=== PATIENT | male | born 1985 | race Caucasian/White ===

== ENCOUNTER 2017-07-16 12:24 | Emergency (ER) | payer SELFPAY ==
--- NOTE | 2017-07-16 12:24 | DT_ITS ---
This patient was seen during an EMR downtime July 16, 2017 - July 23, 2017. This patient may have a combination of paper and electronic documentation or all paper documentation. All documentation is viewable within the e-chart portion of [employer] for each patient visit.
== END 2017-07-16 13:41 | disposition home or self-care (01) ==
LOC: ED 07-18 15:52
PROVIDERS: Emergency Provider Emergency Medicine
DX: J02.9 Acute pharyngitis, unspecified (principal); R11.10 Vomiting, unspecified
CPT/HCPCS: 87880

== ENCOUNTER → 2020-04-28 16:29 | Outpatient (CLI) | payer OTHER, SELFPAY ==
[2016-01-24 12:38] VITALS: BMI 29.7
[2020-04-28 17:54] LABS: Absolute Lymphocyte Count 1.68 X10^3/uL (0.83-4.51); Absolute Neutrophil Count 3.5 X10^3/uL (2.0-7.7); Basophil# 0.05 X10^3/uL; Basophil% 0.8 % (0-1); Eosinophil# 0.19 X10^3/uL; Eosinophils% 3.2 % (0-5); Hematocrit 44.7 % (40-54); Hemoglobin 14.6 g/dL (13.0-16.5); Lymphocyte # 1.68 X10^3/ul (4.0); Lymphocyte % 28.4 % (19-41); Mean Corp Hgb Conc 32.7 g/dL (32-36); Mean Corpuscular Volume 85.8 fL (80-94); Mean Platelet Vol. 10.6 fl (6.2-12.0); Monocyte# 0.44 X10^3/uL; Monocyte% 7.4 % (0-10); NRBC Flagged by Analyzer 0 % (0-5); Neutrophil # 3.54 X10^3/uL (2.7-7.7); Platelet Count 256 K/mm3 (150-450); RBC Distribution Width CV 13.2 % (11.6-14.6); RBC Distribution Width SD 41.7 fl (35.1-43.9); Red Blood Count 5.21 M/mm3 (4.6-6.2); White Blood Count 5.9 K/mm3 (4.4-11.0)
== END ==
PROVIDERS: Referring Provider Otolaryngology; Visit Provider Otolaryngology
DX: R06.09 Other forms of dyspnea (principal)
CPT/HCPCS: 36415; 85025

== ENCOUNTER → 2020-06-14 13:46 | Outpatient (CLI) | payer OTHER, SELFPAY ==
[2020-05-26 15:08] VITALS: BMI 30.1
--- NOTE | 2020-06-14 13:47 | STEWCON_ITS ---
Reason For Study: CAPPS Stress Results Protocol: Matias Protocol WITH DEFINITY Maximum Predicted HR: 187 bpm Target HR: 159 bpm % Maximum Predicted HR: 91 % DurationHeart Rate Stage (mm:ss) (bpm) BP Comment Baseline 82 122/78No Chest Pain; 4 ML Diluted Definity Matias Protocol Stage I 3:00 110 134/70No Chest Pain Matias Protocol Stage II 3:00 130 132/78No Chest Pain; Mild Dyspnea Matias Protocol Stage III 3:00 150 140/74No Chest Pain; Mild Dyspnea; SPO2 95% Matias Protocol Stage IV 1:30 171 / No Chest Pain; Mild Dyspnea Recovery 100 120/82No Chest Pain; No Dyspnea Stress Duration: 10:30 mm:ss Maximum Stress HR: 171 bpm METS: 13 Baseline Echocardiogram Findings Stress Echo Wall motion Data Resting WM Intermediate WM Stress WM ECHO/Stress Test Echo W/Contrast Interpretation Summary Exercise stress echo. 34-year-old man with a history of chest pain. Stress protocol: Resting EKG demonstrates normal sinus rhythm with a rate of 78 bpm resting bloo d pressure is 122/78 mmHg. The patient exercised according to the regular Matias protocol for a total duration of 10 minutes and 30 seconds. Patient completed 1 minute and 30 seconds into stage IV of the Matias protocol. The maximum heart rate attained was 171 bpm which was 91% of maximum predicted heart rate the maximum workload was 13.4 metabolic equivalents. The patient maintained sin us rhythm throughout the recording. At rest there were no ST or T wave changes noted to suggest isch emia and at peak exercise upsloping ST changes only were noted with did not meet the criteria fo r ischemia. No clinical angina was noted the test was terminated due to leg fatigue. Good bloo d pressure response was noted to exercise with a peak blood pressure 150/70 mmHg. Stress echocardiogram. The resting echocardiogram demonstrated an ejection fraction of approximately 4 7% with mild global hypokinesis. At peak exercise there was thickening of all hurley and reduction o f left ventricular cavity size with a peaking ejection fraction of 65%. No wall motion abnormaliti es were noted. Conclusion: Exercise stress echo with no evidence of ischemia at a high workload. Excellent functional capacity. No clinical angina noted. Ordering Physician: Ken Adhikari Referring Physician: Ken Adhikari Performed By: Lisette Carmichael, HUGH, RVT
== END ==
PROVIDERS: Referring Provider Internal Medicine Cardiovascular Disease; Visit Provider Internal Medicine Cardiovascular Disease
DX: I49.3 Ventricular premature depolarization (principal); R06.02 Shortness of breath
CPT/HCPCS: 93017; 93350; Q9957; A4216; C8928

== ENCOUNTER → 2020-06-16 16:18 | Outpatient (CLI) | payer OTHER, SELFPAY ==
[2020-05-26 15:08] VITALS: BMI 30.1
[2020-06-16 17:44] LABS: BNP,B-Type NATRIURETIC PEPTIDE < 2.0 pg/mL (0-100)
== END ==
PROVIDERS: Visit Provider Internal Medicine Cardiovascular Disease
DX: I49.3 Ventricular premature depolarization (principal); I43 Cardiomyopathy in diseases classified elsewhere; R06.02 Shortness of breath
CPT/HCPCS: 36415; 83880

== ENCOUNTER 2023-08-01 11:00 | Emergency (ER) | payer OTHER, SELFPAY ==
[2023-08-01 11:01] VITALS: BP 134/76; PULSE 78; RESP 16; TEMP 36.4; O2SAT 98; BMI 28.0
--- NOTE | 2023-08-01 11:38 | EDS_ITS ---
HPI HPI - GI History of Present Illness Chief Complaint: Abd Pain Informant: patient Narrative Narrative: 37-year-old male presenting to the emergency room with right upper quadrant abdominal pain. Symptoms have been intermittent over the past couple weeks. He states he has been feeling full longer after he eats but not necessarily early satiety. States he feels like maybe he is not digesting his food normally. Pain does not radiate. Pain seems to get intense at times and then improves. He denies any vomiting. No diarrhea. No hematuria or urinary frequency/dysuria. No shoulder or new back pain. He has had prior tonsillectomy a few years ago. Currently not taking any medications. No prior abdominal surgeries. PFSH PFS Medical History Cardiomyopathy in diseases classified elsewhere Hypersomnia GERD (gastroesophageal reflux disease) Hypertrophy tonsils Other diseases of larynx Obesity Home Medications ?Medication ?Instructions ?Recorded ?Last Taken ?Type ondansetron 4 mg disintegrating 4 mg PO Q6H PRN PRN Nausea #15 tabs 08/01/23 Unknown Rx tablet oxycodone-acetaminophen 5 mg-325 1 tab PO Q6H PRN PRN Pain 3 days 08/01/23 Unknown Rx mg tablet #12 TABLETS sulfamethoxazole 800 1 tab PO BID #14 TABLETS 08/01/23 Unknown Rx mg-trimethoprim 160 mg tablet Allergy/AdvReac Type Severity Reaction Status Date / Time No Known Allergies Allergy Verified 08/01/23 11:01 Social History Smoking Status: Never smoker [facility] ED Constitutional Constitutional ED: Denies chills, fever(s) or weight loss Eyes Eyes: Denies change in vision or diplopia ENT ENT ED: Denies ear pain, rhinorrhea or sore throat Cardiovascular Cardiovascular: Denies chest pain, orthopnea, palpitations or racing heartbeat Respiratory/Chest Respiratory/Chest: Denies cough, dyspnea or orthopnea Gastrointestinal Gastrointestinal: Reports abdominal pain; Denies diarrhea, nausea or vomiting Genitourinary Genitourinary ED: Denies dysuria, hematuria or urinary frequency Musculoskeletal Musculoskeletal: Reports back pain; Denies arthralgias, myalgias or neck pain Integumentary Denies abscess or rash Neurologic Neurologic: Denies headache(s) or weakness Psychiatric Psychiatric: Denies anxiety, depression, suicidal ideation or suicidal thoughts Endocrine Endocrinology: Denies polydipsia, polyphagia or polyuria Allergic/Immunologic Allergic/Immunologic ED: Denies mouth swelling, tongue swelling or urticaria EXAM Physical Exam Const Vital Signs: 08/01/23 11:01 08/01/23 13:00 Temperature 97.6 F L 97.9 F Temperature Source Temporal Oral Pulse Rate 78 71 Respiratory Rate 16 18 Blood Pressure 134/76 H 115/60 Blood Pressure Mean 95 78 Pulse Ox 98 99 Oxygen Delivery Method Room Air Room Air Positive well nourished and well developed General Appearance ED: well developed HEENT Reports normocephalic, head/scalp atraumatic and moist mucous membranes Eyes PERRL and EOMs intact bilaterally Neck no lymphadenopathy, supple and no JVD Resp normal respiratory effort and clear to auscultation bilaterally Cardio regular rate, regular rhythm and no murmurs GI non-distended and no masses Inspection: Negative for abdominal distention Auscultation: normoactive bowel sounds Palpation: soft and tender RUQ; Negative for guarding or rebound tenderness present Back/Spine no CVA tenderness and normal ROM Extremity normal to inspection General Extremety ED: Negative for edema General Extremity: Negative for edema Neuro oriented x3 and CN's II-XII intact bilaterally Sensorium / Orientation: alert Motor Exam: strength 5/5 throughout Psych mental status grossly normal Mood & Affect: Negative for depressed or tearful Skin no rashes or lesions noted and no wounds MDM MDM MDM Narrative Medical decision making narrative: Differential diagnosis includes but not limited to cholelithiasis choledocholithiasis acute hepatitis pancreatitis colitis ureterolithiasis pyelonephritis muscle strain pneumonia. Basic blood work was very unremarkable except for glucose of 114. Lipase liver enzymes within normal limits. White count is normal at 6.3 with a normal differential. Urinalysis is very brown. Noted to have greater than 100 red blood cells 2+ bacteria positive nitrates positive leukocyte esterase. This was sent for culture. Initially a gallbladder ultrasound was ordered but upon receipt of the urine I changed this to a CT of the abdomen pelvis. This demonstrates a proximal ureteral stone on the right. I think this is the source of the patient's pain. I do not appreciate cholelithiasis. There is some possible sigmoid bowel thickening but he is not having those types of symptoms or pain in the left lower quadrant suprapubic region. Patient will be placed on antibiotics as well as pain and nausea medication. I gave him urology to follow-up with. He understands return instructions. History & Record Review Discussion w/independent historian: Patient Lab Data Attestation: I reviewed the patient's lab results. Labs: Laboratory Results - last 24 hr 08/01/23 11:20 WBC 6.3 RBC 5.55 Hgb 15.9 Hct 48.5 MCV 87.4 MCH 28.6 MCHC 32.8 RDW Std Deviation 42.5 RDW Coeff of Suad 13.2 Plt Count 285 MPV 10.3 Immature Gran % (Auto) 0.200 Neut % (Auto) 67.2 Lymph % (Auto) 25.2 [place] % (Auto) 5.2 Eos % (Auto) 1.4 Baso % (Auto) 0.8 Absolute Neuts (auto) 4.2 Absolute Lymphs (auto) 1.59 Nucleated RBC % 0 Sodium 138 Potassium 3.9 Chloride 105 Carbon Dioxide 27.0 Anion Gap 6 BUN 14 Creatinine 1.07 Estim Creat Clear Calc 103.88 Est GFR (MDRD) Af Amer 100 Est GFR (MDRD) Non-Af 83 BUN/Creatinine Ratio 13.1 Glucose 114 H Calcium 9.4 Total Bilirubin 1.00 Direct Bilirubin 0.22 AST 30 ALT 53 Alkaline Phosphatase 88 Total Protein 7.8 Albumin 4.4 Globulin 3.4 Lipase 41 Urine Color Brown Urine Clarity Turbid Urine pH 5.0 Ur Specific [place] 1.025 Urine Protein 100 H Urine Glucose (UA) Normal Urine Ketones 5 H Urine Occult Blood 250 H Urine Nitrite Positive H Urine Bilirubin 1 H Urine Urobilinogen 1 H Ur Leukocyte Esterase 25 H Urine RBC > 100 SEEN Urine WBC 0-5 SEEN Ur Squamous Epith Cells 0 SEEN Ur Transition Epith Cell 0-5 SEEN Urine Bacteria 2+ Urine Mucus 0 SEEN Urine Yeast 3+ Radiography Diagnostic Testing: Clinical Impression(s) from Imaging Studies Abdomen/Pelvis CT 08/01/23 12:18 IMPRESSION: Mild degree of thickening of the sigmoid colon. Mild degree of colitis should be ruled out. Electronically Signed: En Hurtado MD at 12:38 EDT , ADDENDUM: 08/01/23 7316 IMPRESSION: undefined Discharge Plan Triage Chief Complaint: Abd Pain ED Provider: Gary Hamilton Dx/Rx/DC Orders Clinical Impression: Abdominal pain, Ureterolithiasis, UTI (urinary tract infection) Instructions: ED Kidney Stone with Pain Prescriptions: New oxycodone-acetaminophen 5-325 mg tablet 1 tab PO Q6H PRN PRN (Reason: Pain) 3 Days Qty: 12 0RF ondansetron 4 mg tablet,disintegrating 4 mg PO Q6H PRN PRN (Reason: Nausea) Qty: 15 0RF sulfamethoxazole-trimethoprim 800-160 mg tablet 1 tab PO BID Qty: 14 0RF Primary Care Provider: Care Physician,No Primary Referrals: Lupillo Beck MD [Med Staff - Active Staff] - 1 Week if not improving Care Physician,No Primary [Primary Care Provider] - Activity Restrictions/Additional Instructions: If you are worsening or your pain is not controlled please return to emergency department. He was noted to have bacteria in the urine today so we are placing you on antibiotic. Should you developed fever painful urination or have concerns please go to the emergency room. Print Language: Portuguese Disposition Disposition: Home, Self Care
[2023-08-01] MEDS: 0.9% Normal Saline (1000mL) 1,000 ML 999 ML IV (11:44)
[2023-08-01 11:45] LABS: Absolute Lymphocyte Count 1.59 X10^3/uL (0.83-4.51); Absolute Neutrophil Count 4.2 X10^3/uL (2.0-7.7); Basophil# 0.05 X10^3/uL; Basophil% 0.8 % (0-1); Eosinophil# 0.09 X10^3/uL; Eosinophils% 1.4 % (0-5); Hematocrit 48.5 % (40-54); Hemoglobin 15.9 g/dL (13.0-16.5); Lymphocyte # 1.59 X10^3/ul (0.83-4.51); Lymphocyte % 25.2 % (19-41); Mean Corp Hgb Conc 32.8 g/dL (32-36); Mean Corpuscular Hgb 28.6 pg (27.0-32.0); Mean Corpuscular Volume 87.4 fL (80-94); Mean Platelet Vol. 10.3 fl (6.2-12.0); Monocyte# 0.33 X10^3/uL; Monocyte% 5.2 % (0-10); NRBC Flagged by Analyzer 0 % (0-5); Neutrophil # 4.24 X10^3/uL (2.7-7.7); Neutrophil % 67.2 % (47-70); Platelet Count 285 K/mm3 (150-450); RBC Distribution Width CV 13.2 % (11.6-14.6); RBC Distribution Width SD 42.5 fl (35.1-43.9); Red Blood Count 5.55 M/mm3 (4.6-6.2); White Blood Count 6.3 K/mm3 (4.4-11.0)
[2023-08-01 11:52] LABS: Color, Urine Brown (Yellow); Glucose, Dipstick Normal (Normal); Ketone-Dipstick 5 mg/dl (Negative); Leukocyte Esterase-Dipstick 25 /ul (Negative); Nitrite-Dipstick Positive (Negative); Occult Blood-Urine 250 /ul (Negative); Protein-Dipstick 100 mg/dl (Negative); Specific Gravity, Urine 1.025 (1.002-1.030); Urine Clarity Turbid (Clear); Urine Urobilinogen 1 mg/dl (Normal)
[2023-08-01 11:55] LABS: Urine Bilirubin Dipstick 1 mg/dL (Negative)
[2023-08-01 11:58] LABS: Red Blood Cells-Urine > 100 SEEN /hpf (0-5)
[2023-08-01 11:59] LABS: Bacteria 2+ /hpf (None Seen)
[2023-08-01 12:04] LABS: Yeast-Urine 3+ /hpf (None Seen)
[2023-08-01 12:06] LABS: Transitional Epithelial - Ur 0-5 SEEN /hpf (0-5); White Blood Cells 0-5 SEEN /hpf (0-5)
[2023-08-01 12:07] LABS: Mucous, Urine 0 SEEN /hpf (<or=2+)
[2023-08-01 12:08] LABS: Squamous Epithelial Cells - UA 0 SEEN /hpf (0-5)
--- NOTE | 2023-08-01 12:18 | CT_ITS ---
STUDY: CT ABDOMEN AND PELVIS WITH CONTRAST REASON FOR EXAM: Male, 37 years old. Abdominal/flank pain RADIATION DOSAGE (If Supplied By Facility): CTDIvol = ( 14.70 ) mGy, DLP = ( 1058.24 ) mGycm TECHNIQUE: Transaxial images were obtained from the dome of the diaphragm to the symphysis pubis without oral contrast. IV 100mL Isovue-370 was administered. Sagittal and coronal images were reconstructed. Individualized dose optimization techniques were used for this CT. COMPARISON: None. FINDINGS: The visualized lung bases are unremarkable. The visualized portions of the heart are within normal limits. Normal liver. Normal gallbladder and extrahepatic biliary system. Borderline splenomegaly. Normal pancreas. Normal bilateral adrenal glands. Normal right kidney. Normal left kidney. Normal visualized stomach. Normal small intestine. Mild degree of thickening of the sigmoid colon. Mild degree of colitis should be ruled out. The appendix is visualized and appears normal. Normal abdominal aorta. Normal inferior vena cava. Normal retroperitoneum. Normal urinary bladder. Small benign-appearing bilateral inguinal lymph nodes. There is spondylolysis of the pars interarticularis of the L5 vertebrae. No evidence of listhesis. CT/Abdomen/Pelvis W IV Cont ONLY IMPRESSION: Mild degree of thickening of the sigmoid colon. Mild degree of colitis should be ruled out. Electronically Signed: En Hurtado MD at 12:38 EDT ,
[2023-08-01 12:55] LABS: AST(SGOT) 30 U/L (15-37); Alanine Aminotransfer ALT/SGPT 53 U/L (16-61); Albumin, Serum 4.4 g/dL (3.2-5.0); Alkaline Phosphatase 88 U/L (45-117); Anion Gap 6 (5-15); BUN 14 mg/dL (7-18); BUN/Creat Ratio 13.1 RATIO (10-20); Bilirubin, Direct 0.22 mg/dL (0.00-0.30); Calcium,Total 9.4 mg/dL (8.5-10.1); Chloride 105 mmol/L (98-107); Creatinine, Serum 1.07 mg/dL (0.70-1.30); EST Glomerular Filtration Rate 83 mL/min (>60); Est Glom Filt Rate - Afr Amer 100 mL/min (>60); Estimated Creatinine Clearance 103.88 ml/min; Globulin 3.4 g/dL (2.2-4.2); Glucose 114 mg/dL (74-106); Lipase 41 U/L (13-75); Potassium 3.9 mmol/L (3.5-5.1); Protein, Total 7.8 g/dL (6.4-8.2); Sodium Level 138 mmol/L (136-145)
[2023-08-01 13:00] VITALS: BP 115/60; PULSE 71; RESP 18; TEMP 36.6; O2SAT 99
[2023-08-01 13:46] VITALS: BP 115/60; PULSE 71; RESP 18; TEMP 36.6; O2SAT 99
== END 2023-08-01 13:47 | disposition home or self-care (01) ==
PROVIDERS: Emergency Provider Emergency Medicine; Visit Provider Emergency Medicine
DX: R10.11 Right upper quadrant pain (principal); N39.0 Urinary tract infection, site not specified; N20.1 Calculus of ureter
CPT/HCPCS: 74177; 80048; 80076; 81001; 83690; 85025; 87086; 96360; 96361; 99283; Q9967; A4216